=== PATIENT | female | born 2000 | race Caucasian/White ===

== ENCOUNTER 2023-04-12 16:44 | Emergency (ER) | payer OTHER ==
[~2023-04-12] VITALS: Ht 172.7 cm; Wt 68.0 kg
[~2023-04-12 16:44] MED LIST: INTESTINEX1 CA1 PO; PROZAC20 MG; VISTARIL25 MG; ZANTAC150 MG PO
[2023-04-12 20:26] LABS: HEMATOCRIT 40.5 % (36.0-45.00); HEMOGLOBIN 14.2 g/dL (12.0-15.00); MEAN CELL VOLUME 90.9 fL (80.00-100.00); MEAN CORPUSCULAR HEMOGLOBIN 31.8 pg (27.00-32.0); MEAN CORPUSCULAR HGB CONC 34.9 g/dl (32.0-36.0); PLATELET COUNT 173 K/uL (150-450); RED BLOOD COUNT 4.46 M/uL (4.00-6.00); RED CELL DISTRIBUTION WIDTH 12.9 % (11.5-14.5)
== END 2023-04-12 21:25 | disposition home or self-care (01) ==
LOC: ER 16:44
PROVIDERS: General Practice
DX: R53.81 Other malaise (principal); B34.9 Viral infection, unspecified; Z20.822 Contact with and (suspected) exposure to COVID-19